=== PATIENT | female | born 1990 | race American Indian/Alaskan Native ===

== ENCOUNTER 2017-06-19 23:50 | Emergency (ER) | payer MEDICAID ==
[2017-06-20] MEDS ORDERED: ASPIRIN PO ONE (00:49)
[2017-06-20 01:19] LABS: BUN/Creatinine Ratio 6; Blood Urea Nitrogen 5 mg/dL (7-17); Hemolysis Index 9
[2017-06-20 01:26] LABS: Eosinophils # (Auto) 0.1 K/mm3 (0.0-0.4); Eosinophils % (Auto) 1.8 % (0.0-4.3); Hematocrit 36.1 % (30.3-42.9); Hemoglobin 11.9 gm/dl (10.1-14.3); Lymphocytes # (Auto) 0.8 K/mm3 (1.2-5.4); Lymphocytes % (Auto) 16.9 % (13.4-35.0); Mean Corpuscular HGB Conc 33 % (30-34); Mean Corpuscular Hemoglobin 28 pg (28-32); Mean Corpuscular Volume 85 fl (79-97); Monocytes # (Auto) 0.6 K/mm3 (0.0-0.8); Monocytes % (Auto) 13.8 % (0.0-7.3); Red Blood Count 4.25 M/mm3 (3.65-5.03)
[2017-06-20 01:31] LABS: Platelet Count 201 K/mm3 (140-440)
[2017-06-20 02:21] LABS: Bilirubin,Urine NEG (Negative); Blood,Urine MOD (Negative); Color,Urine Yellow (Yellow); Nitrite,Urine NEG (Negative); Protein,Urine <15 mg/dL mg/dL (Negative); Urobilinogen,Urine < 2.0 mg/dL (<2.0)
[2017-06-20 07:06] VITALS: BP 135/79
[2017-06-20] MEDS ORDERED: K-DUR PO ONE (07:07)
--- NOTE | 2017-06-20 07:22 | Emergency Department Report ---
ED General Adult HPI - General Chief complaint: Chest Pain Stated complaint: CHEST PAIN Time Seen by Provider: 06/20/17 07:02 Source: patient, RN notes reviewed Mode of arrival: Ambulatory Limitations: No Limitations - History of Present Illness Initial comments: This is a 27-year-old female who was previously unknown to this provider. She is 8, para 3, last menstrual period was May 02, patient denies chronic medical conditions, history of abdominal surgeries, presents to the ER with a complaint of chest tightness, dry cough, body pain, stuffy nose, frontal sinus headache, malaise, fatigue, lower back pain. Patient reports multiple sick contacts at home. She denies neck pain and neck stiffness. She denies lower abdominal pain. She denies dysuria. Patient's symptoms have been intermittent for the past few days, they worse with palpation, range of motion, decreased with rest. Patient also describes central chest pressure associated with coughing, the chest pressure does not relate to the back, arms or neck. There is no leg pain, there is no leg swelling, no recent surgeries, denies recent cocaine use, patient denies illegal drug use. Patient did not know that she was and was incidentally found to be in the emergency department. -: Gradual Location: head, face, chest, back, left, right, upper extremity, lower extremity Severity scale (0 -10): 6 Quality: aching Consistency: intermittent Improves with: rest Worsens with: movement Associated Symptoms: chest pain, cough, headaches, loss of appetite, malaise, weakness. denies: confusion, diaphoresis, nausea/vomiting, shortness of breath , syncope - Related Data Previous Rx's Medication Instructions Recorded Last Taken Type Acetaminophen [Tylenol Arthritis] 650 mg PO Q6HR PRN #30 tablet.er 06/20/17 Unknown Rx Doxylamine Succinate/Vit B6 1 each PO QHS PRN #30 tablet. 06/20/17 Unknown Rx [Lexi Hutton 10-10 mg Tablet] Vit Calc,Iron,Folic 1 each PO QDAY #30 tablet 06/20/17 Unknown Rx [ Vitamins] Allergies Allergy/AdvReac Type Severity Reaction Status Date / Time nitrofurantoin Allergy Swelling Verified 06/20/17 00:40 [From Macrobid] ED Review of Systems ROS: Stated complaint: CHEST PAIN Other details as noted in HPI ED Past Medical Hx - Past Medical History Previous Medical History?: No - Surgical History Past Surgical History?: No - Social History Smoking Status: Current Every Day Smoker Substance Use Type: None - Medications Home Medications: Home Medications Medication Instructions Recorded Confirmed Last Taken Type Acetaminophen [Tylenol Arthritis] 650 mg PO Q6HR PRN #30 tablet.er 06/20/17 Unknown Rx Doxylamine Succinate/Vit B6 1 each PO QHS PRN #30 tablet. 06/20/17 Unknown Rx [Diclegis Dr 10-10 mg Tablet] Vit Calc,Iron,Folic 1 each PO QDAY #30 tablet 06/20/17 Unknown Rx [ Vitamins] ED Physical Exam - General Limitations: No Limitations General appearance: alert, in no apparent distress - Head Head exam: Present: atraumatic, normocephalic - Eye Eye exam: Present: normal appearance, PERRL, EOMI. Absent: nystagmus - ENT ENT exam: Present: normal exam, normal orophraynx, mucous membranes moist, TM's normal bilaterally, normal external ear exam - Neck Neck exam: Present: normal inspection, full ROM - Respiratory Respiratory exam: Present: normal lung sounds bilaterally, chest wall tenderness. Absent: respiratory distress - Cardiovascular Cardiovascular Exam: Present: regular rate, normal rhythm, normal heart sounds. Absent: systolic murmur, diastolic murmur, rubs, gallop - GI/Abdominal GI/Abdominal exam: Present: soft, normal bowel sounds. Absent: distended, tenderness, guarding, rebound, rigid, pulsatile mass - Extremities Exam Extremities exam: Present: normal inspection, full ROM, normal capillary refill. Absent: tenderness, pedal edema, joint swelling, calf tenderness - Back Exam Back exam: Present: normal inspection, full ROM, paraspinal tenderness. Absent : tenderness, CVA tenderness (R), vertebral tenderness - Neurological Exam Neurological exam: Present: alert, oriented X3, CN II-XII intact, normal gait, other (Extraocular movements intact. Tongue midline. No facial droop. Facial sensation intact to light touch in the V1, V2, V3 distribution bilaterally. 5 and 5 strength in 4 extremities.. Sensation is intact to light touch in 4 extremities.). Absent: motor sensory deficit - Psychiatric Psychiatric exam: Present: normal affect, normal mood - Skin Skin exam: Present: warm, dry, intact, normal color. Absent: rash ED Course Vital Signs 06/19/17 06/20/17 06/20/17 23:55 00:40 05:30 Temperature 98.4 F 98.4 F Pulse Rate 102 H 102 H Respiratory 18 18 16 Rate Blood Pressure 139/88 Blood Pressure 139/88 [Right] O2 Sat by Pulse 99 99 99 Oximetry 06/20/17 06/20/17 05:35 07:05 Temperature 98.7 F Pulse Rate 85 86 Respiratory 16 16 Rate Blood Pressure Blood Pressure 160/93 135/79 [Right] O2 Sat by Pulse 99 100 Oximetry ED Medical Decision Making - Lab Data Result diagrams: 06/20/17 00:55 06/20/17 00:55 Vital Signs 06/19/17 06/20/17 06/20/17 23:55 00:40 05:30 Temperature 98.4 F 98.4 F Pulse Rate 102 H 102 H Respiratory 18 18 16 Rate Blood Pressure 139/88 Blood Pressure 139/88 [Right] O2 Sat by Pulse 99 99 99 Oximetry 06/20/17 06/20/17 05:35 07:05 Temperature 98.7 F Pulse Rate 85 86 Respiratory 16 16 Rate Blood Pressure Blood Pressure 160/93 135/79 [Right] O2 Sat by Pulse 99 100 Oximetry Lab Results 06/20/17 06/20/17 06/20/17 Range/Units 00:55 00:55 00:55 WBC 4.6 (4.5-11.0) K/mm3 RBC 4.25 (3.65-5.03) M/mm3 Hgb 11.9 (10.1-14.3) gm/dl Hct 36.1 (30.3-42.9) % MCV 85 (79-97) fl MCH 28 (28-32) pg MCHC 33 (30-34) % RDW 15.0 (13.2-15.2) % Plt Count 201 (140-440) K/mm3 Lymph % (Auto) 16.9 (13.4-35.0) % Harvey % (Auto) 13.8 H (0.0-7.3) % Eos % (Auto) 1.8 (0.0-4.3) % Baso % (Auto) 1.0 (0.0-1.8) % Lymph # 0.8 L (1.2-5.4) K/mm3 Harvey # 0.6 (0.0-0.8) K/mm3 Eos # 0.1 (0.0-0.4) K/mm3 Baso # 0.0 (0.0-0.1) K/mm3 Seg Neutrophils % 66.5 (40.0-70.0) % Seg Neutrophils # 3.1 (1.8-7.7) K/mm3 Sodium 141 (137-145) mmol/L Potassium 3.3 L (3.6-5.0) mmol/L Chloride 102.6 (98-107) mmol/L Carbon Dioxide 26 (22-30) mmol/L Anion Gap 16 mmol/L BUN 5 L (7-17) mg/dL Creatinine 0.8 (0.7-1.2) mg/dL Estimated GFR > 60 ml/min BUN/Creatinine Ratio 6 % Glucose 93 (65-100) mg/dL Calcium 9.0 (8.4-10.2) mg/dL Magnesium (1.7-2.3) mg/dL Troponin T < 0.010 (0.00-0.029) ng/mL HCG, Qual Positive (Negative) Urine Color (Yellow) Urine Turbidity (Clear) Urine pH (5.0-7.0) Ur Specific [place] (1.003-1.030) Urine Protein (Negative) mg/dL Urine Glucose (UA) (Negative) mg/dL Urine Ketones (Negative) mg/dL Urine Blood (Negative) Urine Nitrite (Negative) Urine Bilirubin (Negative) Urine Urobilinogen (<2.0) mg/dL Ur Leukocyte Esterase (Negative) Urine WBC (Auto) (0.0-6.0) /HPF Urine RBC (Auto) (0.0-6.0) /HPF U Epithel Cells (Auto) (0-13.0) /HPF 06/20/17 06/20/17 06/20/17 Range/Units 02:00 04:50 04:50 WBC (4.5-11.0) K/mm3 RBC (3.65-5.03) M/mm3 Hgb (10.1-14.3) gm/dl Hct (30.3-42.9) % MCV (79-97) fl MCH (28-32) pg MCHC (30-34) % RDW (13.2-15.2) % Plt Count (140-440) K/mm3 Lymph % (Auto) (13.4-35.0) % Harvey % (Auto) (0.0-7.3) % Eos % (Auto) (0.0-4.3) % Baso % (Auto) (0.0-1.8) % Lymph # (1.2-5.4) K/mm3 Harvey # (0.0-0.8) K/mm3 Eos # (0.0-0.4) K/mm3 Baso # (0.0-0.1) K/mm3 Seg Neutrophils % (40.0-70.0) % Seg Neutrophils # (1.8-7.7) K/mm3 Sodium (137-145) mmol/L Potassium (3.6-5.0) mmol/L Chloride (98-107) mmol/L Carbon Dioxide (22-30) mmol/L Anion Gap mmol/L BUN (7-17) mg/dL Creatinine (0.7-1.2) mg/dL Estimated GFR ml/min BUN/Creatinine Ratio % Glucose (65-100) mg/dL Calcium (8.4-10.2) mg/dL Magnesium 1.80 (1.7-2.3) mg/dL Troponin T < 0.010 (0.00-0.029) ng/mL HCG, Qual (Negative) Urine Color Yellow (Yellow) Urine Turbidity Clear (Clear) Urine pH 6.0 (5.0-7.0) Ur Specific [place] 1.012 (1.003-1.030) Urine Protein <15 mg/dl (Negative) mg/dL Urine Glucose (UA) Neg (Negative) mg/dL Urine Ketones Tr (Negative) mg/dL Urine Blood Mod (Negative) Urine Nitrite Neg (Negative) Urine Bilirubin Neg (Negative) Urine Urobilinogen < 2.0 (<2.0) mg/dL Ur Leukocyte Esterase Tr (Negative) Urine WBC (Auto) 2.0 (0.0-6.0) /HPF Urine RBC (Auto) 1.0 (0.0-6.0) /HPF U Epithel Cells (Auto) 2.0 (0-13.0) /HPF - EKG Data -: EKG Interpreted by Ca EKG shows normal: sinus rhythm Rate: normal - EKG Data 06/20/17 08:03 Normal sinus, 89 bpm, borderline left axis deviation, QTC within normal limits, not morphologically consistent with ST elevation myocardial infarct - Medical Decision Making Differential diagnosis, including not limited to: Viral syndrome, bronchitis, cold, incidental , incidental elevated blood pressure Assessment and plan: A 27-year-old female who is found to be incidentally , with multiple viral-like symptoms, including cough, headache, reproducible chest wall pain with headache, reproducible paralumbar back pain. In the emergency department she is afebrile with reassuring vital signs, is resting comfortably in a stretcher, walks without difficulty, has reproducible chest wall tenderness, reproducible paraspinal tenderness, and appears to be in no distress. Her objective laboratory studies were unremarkable with the exception of mild hypokalemia. I find the patient to be low risk by well's criteria, and I find the patient to be low risk by ANG score, and low risk by heart score. Myocarditis, pericarditis very unlikely given lack of tachycardia, lack of fever , lack of positive troponin; her tachycardia has resolved. My bedside ultrasound demonstrated an intrauterine gestational sac. Her abdomen is soft and benign, without rebound, guarding or peritoneal signs. Patient was medicated appropriately, instructed to follow up with outpatient IT SALES REPRESENTATIVE to initiate care. Walks with a steady gait, history and physical not consistent with epidural compression syndrome. She can follow-up with an OB/ P[facility]IC TOP ASSEMBLER for incidental elevated blood pressure. Critical care attestation.: If time is entered above; I have spent that time in minutes in the direct care of this critically ill patient, excluding procedure time. ED Disposition Clinical Impression: Viral syndrome, Disposition: DC-01 TO HOME OR SELFCARE Is pt being admited?: No Does the pt Need Aspirin: No Condition: Stable Instructions: Viral Syndrome (ED) Additional Instructions: Take the medications as needed/directed. Follow up as soon as possible with an outpatient IT SALES REPRESENTATIVE doctor to initiate outpatient care. Please note that blood pressure was elevated in the emergency department, and this should be followed up as recommended with an outpatient IT SALES REPRESENTATIVE doctor. Complications of hypertension in include stroke, heart attack, disability, , paralysis, loss of quality of life. Return to the ER right away with new pain, worsened pain, migration of pain, lethargy, irritability, projectile vomiting, change in mental status, confusion, inability to tolerate liquid feeds. Symptoms most likely coming from cold/virus, this will likely resolve on its own , makes them to wash hands after handling other sick people, after coughing and sneezing, and before and after handling food. Referrals: PRIMARY CARE, [Primary Care Provider] - 3-5 Days [facility] [Provider Group] - 3-5 Days [facility], [facility] [Provider Group] - 3-5 Days [facility] [Provider Group] - 3-5 Days
[2017-06-20] MEDS ORDERED: TYLENOL PO ONE (08:00)
== END 2017-06-20 08:27 | disposition home or self-care (01) ==
LOC: ED 23:50
DX: O26.899 Other specified pregnancy related conditions, unspecified trimester (principal); B34.9 Viral infection, unspecified; Z3A.00 Weeks of gestation of pregnancy not specified
CPT/HCPCS: 36415; 80048; 81001; 83735; 84484; 84703; 85025; 87086; 87400; 93005; 93010

== ENCOUNTER 2017-06-27 18:17 | Emergency (ER) | payer MEDICAID ==
[2017-06-27 18:23] VITALS: BP 122/63
[2017-06-27 19:26] LABS: Basophils % (Auto) 0.4 % (0.0-1.8); Eosinophils # (Auto) 0.1 K/mm3 (0.0-0.4); Eosinophils % (Auto) 1.8 % (0.0-4.3); Hematocrit 39.2 % (30.3-42.9); Hemoglobin 12.8 gm/dl (10.1-14.3); Lymphocytes # (Auto) 2.9 K/mm3 (1.2-5.4); Lymphocytes % (Auto) 35.8 % (13.4-35.0); Mean Corpuscular HGB Conc 33 % (30-34); Mean Corpuscular Hemoglobin 27 pg (28-32); Mean Corpuscular Volume 84 fl (79-97); Monocytes # (Auto) 0.7 K/mm3 (0.0-0.8); Monocytes % (Auto) 8.3 % (0.0-7.3); Platelet Count 241 K/mm3 (140-440); Red Blood Count 4.67 M/mm3 (3.65-5.03)
[2017-06-27 19:47] LABS: Alanine Aminotransferase 10 units/L (7-56); Albumin 3.9 g/dL (3.9-5); BUN/Creatinine Ratio 20; Blood Urea Nitrogen 12 mg/dL (7-17); Calcium 9.1 mg/dL (8.4-10.2); Hemolysis Index 13; Lipase 34 units/L (13-60)
[2017-06-27 21:24] LABS: Bacteria,Urine 1+ /HPF (Negative); Bilirubin,Urine NEG (Negative); Blood,Urine NEG (Negative); Color,Urine Yellow (Yellow); Mucus,Urine FEW /HPF; Nitrite,Urine NEG (Negative); Protein,Urine <15 mg/dL mg/dL (Negative); Urobilinogen,Urine < 2.0 mg/dL (<2.0)
--- NOTE | 2017-06-27 22:17 | Ultrasound Report ---
FINAL REPORT PROCEDURE: US OB TRANSVAGINAL and transabdominal TECHNIQUE: Real-time transabdominal and transvaginal sonography of the uterus, placenta, amniotic fluid, adnexa, and fetus was performed with image documentation. Measurements were obtained to determine age/size. M-mode Doppler was used to document heartbeat. CPT 30443 and 01983 HISTORY: spotting/abd pain with COMPARISON: No prior studies are available for comparison. FINDINGS: ADDITIONAL GESTATION: None. CRL: 10 mm, which corresponds to a gestational age of: 7 weeks, 0 days. Yolk Sac: Normal. Embryonic Cardiac Activity: 133 beats per minute Gestational Sac: Normal. Amniotic fluid: Normal. Cervix: Normal. Right Ovary: 1.3 centimeter cyst is present Left Ovary: Not well-visualized Estimated delivery date: 02/13/2018 IMPRESSION: 1. Single live intrauterine gestation at approximately 7 weeks, 0 days. 2. EDC by US 02/13/2018 3. Complete anatomic survey at 18-20 weeks suggested.
--- NOTE | 2017-06-27 22:18 | Ultrasound Report ---
FINAL REPORT PROCEDURE: US OB TRANSVAGINAL and transabdominal TECHNIQUE: Real-time transabdominal and transvaginal sonography of the uterus, placenta, amniotic fluid, adnexa, and fetus was performed with image documentation. Measurements were obtained to determine age/size. M-mode Doppler was used to document heartbeat. CPT 46299 and 05622 HISTORY: spotting/abd pain with COMPARISON: No prior studies are available for comparison. FINDINGS: ADDITIONAL GESTATION: None. CRL: 10 mm, which corresponds to a gestational age of: 7 weeks, 0 days. Yolk Sac: Normal. Embryonic Cardiac Activity: 133 beats per minute Gestational Sac: Normal. Amniotic fluid: Normal. Cervix: Normal. Right Ovary: 1.3 centimeter cyst is present Left Ovary: Not well-visualized Estimated delivery date: 02/13/2018 IMPRESSION: 1. Single live intrauterine gestation at approximately 7 weeks, 0 days. 2. EDC by US 02/13/2018 3. Complete anatomic survey at 18-20 weeks suggested. PROCEDURE: TECHNIQUE: HISTORY: COMPARISON: FINDINGS: IMPRESSION:
== END 2017-06-28 17:10 | disposition left against medical advice (07) ==
LOC: ED 18:17
DX: R10.30 Lower abdominal pain, unspecified (principal); Z53.21 Procedure and treatment not carried out due to patient leaving prior to being seen by health care provider
CPT/HCPCS: 36415; 76801; 76817; 80053; 81001; 83690; 84703; 85025

== ENCOUNTER 2017-11-01 18:24 | Outpatient (CLI) | payer MEDICAID ==
[2017-11-01] MEDS ORDERED: LACTATED RINGERS 500 ML IV ONE (19:11)
[2017-11-01] MEDS ORDERED: LACTATED RINGERS 1,000 ML IV SCH (20:00)
[2017-11-01 20:14] LABS: Hematocrit 33.4 % (30.3-42.9); Hemoglobin 10.8 gm/dl (10.1-14.3); Mean Corpuscular HGB Conc 33 % (30-34); Mean Corpuscular Hemoglobin 28 pg (28-32); Mean Corpuscular Volume 86 fl (79-97); Platelet Count 216 K/mm3 (140-440); Red Blood Count 3.87 M/mm3 (3.65-5.03); Red Cell Distribution Width 15.5 % (13.2-15.2)
[2017-11-01 20:47] LABS: Alanine Aminotransferase 16 units/L (7-56)
--- NOTE | 2017-11-01 20:49 | Ultrasound Report ---
FINAL REPORT EXAM: US OB FOLLOW UP HISTORY: Vaginal discharge TECHNIQUE: Limited obstetrical ultrasound PRIORS: Pelvic ultrasound 06/27/2017 FINDINGS: US Age (average) = 25 w 4 D EFW (BPD,HC,AC,FL) = 809 g US EDC 02/20/2018 HC/AC 1.2 BPD 6.3 cm corresponding to estimated age 25 weeks 4 days HC 24.5 cm corresponding to estimated age 26 weeks 4 days AC 20.5 cm corresponding to estimated age 25 weeks 0 days FL 4.6 cm corresponding to estimated age 25 weeks 1 day Presentation: Transverse to the maternal left Activity: Monitored Placental location: Anterior Placental grade: 0 Cardiac motion: 137 BPM using M-mode doppler Amniotic Fluid Volume: Adequate HOMERO 14.0 cm Cervical Length: 2.8 cm IMPRESSION: Single intrauterine viable with an approximate age of 25 weeks 4 days.
[2017-11-01 21:12] VITALS: BP 117/57
== END 2017-11-01 21:30 | disposition home or self-care (01) ==
LOC: TRG 18:24 → LD 18:25 → TRG 21:30
PROVIDERS: ATTEND Obstetrics & Gynecology
DX: O47.02 False labor before 37 completed weeks of gestation, second trimester (principal); Z3A.26 26 weeks gestation of pregnancy
CPT/HCPCS: 36415; 76816; 82565; 82731; 83615; 84450; 84460; 84550; 85027; J7120

== ENCOUNTER 2017-11-19 00:03 | Outpatient (CLI) | payer MEDICAID ==
[2017-11-19] MEDS ORDERED: LACTATED RINGERS 1,000 ML IV ONE (00:42)
[2017-11-19 01:41] VITALS: BP 124/59
[2017-11-19 02:25] LABS: Bacteria,Urine 1+ /HPF (Negative); Bilirubin,Urine NEG (Negative); Blood,Urine NEG (Negative); Color,Urine Yellow (Yellow); Mucus,Urine FEW /HPF; Protein,Urine <15 mg/dL mg/dL (Negative); Urobilinogen,Urine < 2.0 mg/dL (<2.0)
== END 2017-11-19 02:35 | disposition home or self-care (01) ==
LOC: TRG 00:03
PROVIDERS: ATTEND Obstetrics & Gynecology
DX: O46.93 Antepartum hemorrhage, unspecified, third trimester (principal); O26.893 Other specified pregnancy related conditions, third trimester; O99.333 Smoking (tobacco) complicating pregnancy, third trimester; R10.9 Unspecified abdominal pain; M54.9 Dorsalgia, unspecified; H54.7 Unspecified visual loss; F17.210 Nicotine dependence, cigarettes, uncomplicated; Z3A.29 29 weeks gestation of pregnancy
CPT/HCPCS: 81001; 96360; J7120

== ENCOUNTER 2017-12-28 18:21 | Outpatient (CLI) | payer MEDICAID ==
[2017-12-28] MEDS ORDERED: LACTATED RINGERS 500 ML IV ONE (19:30)
[2017-12-28 20:01] LABS: Bilirubin,Urine NEG (Negative); Blood,Urine NEG (Negative); Color,Urine Yellow (Yellow); Protein,Urine <15 mg/dL mg/dL (Negative); Urobilinogen,Urine < 2.0 mg/dL (<2.0)
[2017-12-28] MEDS ORDERED: TYLENOL ONE (22:03)
--- NOTE | 2017-12-29 17:34 | Event Note ---
Date: 12/28/17 27 year old female at 34 weeks, 2 days gestation presents to rule out labor. Patient reports she has been having irregular mild contractions for several days. Patient denies vaginal bleeding. She denies leaking of fluid. Patient reports active movement. She denies constant abdominal pain. Patient was monitored with EFM and found to have category 1 FHR tracing. Fetus is moving actively. Patient was found to have no cervical change and it was determined that patient was not in labor. Discharged patient home with advice to avoid IC. PTL warning signs discussed with patient. Advised pt. to follow up with her primary OB this week (Saturday or Saturday). Advised pt. to reurn promptly if contractions resume.
== END 2017-12-28 22:48 | disposition home or self-care (01) ==
LOC: TRG 18:21
PROVIDERS: ATTEND Obstetrics & Gynecology Gynecology
DX: O47.03 False labor before 37 completed weeks of gestation, third trimester (principal); Z3A.34 34 weeks gestation of pregnancy
CPT/HCPCS: 59025; 81001